=== PATIENT | female | born 1975 | race Two or more races ===

== ENCOUNTER 2017-04-09 12:52 | Emergency (ER) | payer BC ==
[~2017-04-09] VITALS: Ht 160 cm; Wt 72.5 kg
[~2017-04-09 12:52] MED LIST: ACYC-1 PO
[2017-04-09 12:53] VITALS: BP 162/103; PULSE 83; RESP 18; TEMP 98.5; O2SAT 99
[2017-04-09 14:10] LABS: AUTOMATED NEUTROPHIL # 3.8 TH/MM3 (1.8-7.7); BASOPHIL % 0.4 % (0.0-2.0); EOSINOPHIL # 0.1 TH/MM3 (0-0.4); EOSINOPHIL % 1.6 % (0.0-4.0); HEMATOCRIT 39.6 % (35.0-46.0); HEMO FLAGS DIFF FINAL; MEAN CORPUSCULAR HEMOGLOBIN 27.9 PG (27.0-34.0); MEAN CORPUSCULAR HGB CONC 33.6 % (32.0-36.0); MONO % 6.1 % (0.0-8.0); NEUT % 59.9 % (16.0-70.0); PLATELET COUNT 280 TH/MM3 (150-450); RED BLOOD COUNT 4.77 MIL/MM3 (4.00-5.30); RED CELL DISTRIBUTION WIDTH 15.3 % (11.6-17.2); WHITE BLOOD COUNT 6.3 TH/MM3 (4.0-11.0)
[2017-04-09 14:21] LABS: BICARBONATE 25.2 MEQ/L (21.0-32.0); POTASSIUM 3.7 MEQ/L (3.5-5.1)
[2017-04-09] MEDS ORDERED: AMIT25TA9 PO (14:24)
[2017-04-09 14:37] LABS: BACTERIA, URINE OCC /hpf; BLOOD, URINE MOD (NEG); COMMENT (UR) CULT NOT INDICATED; CULTURE IF INDICATED CULT NOT INDICATED; GLUCOSE,URINE NEG (NEG); KETONE, URINE NEG (NEG); MUCUS URINE FEW /lpf (OCC); NITRITE,URINE NEG (NEG); PH, URINE 5.5 (5.0-8.5); SQUAMOUS EPITHELIAL CELL URINE 5 /hpf (0-5); URINE COLOR YELLOW (YELLW/STRAW)
--- NOTE | 2017-04-09 15:24 | PD ---
HPI Chief Complaint: Flank/Kidney Pain Time Seen by Provider: 14:49 Travel History International Travel<30 days: No Contact w/Intl Traveler<30days: No Traveled to known affect area: No History of Present Illness HPI This is a 41-year-old female who presents to the emergency department with right sided abdominal pain, intermittent, moderate severity, present for 3 days with no associated nausea, vomiting, fevers or chills. She denies any dysuria or vaginal discharge. She denies any postprandial pain. She says 5 months ago she had a ventral hernia repaired and after that she was having some right upper quadrant pain and she had evaluation of her gallbladder which was all negative. She says this pain is different and it's more sharp and it radiates to her back. PFSH Past Medical History Migraines: Yes Tetanus Vaccination: Unknown Influenza Vaccination: No ?: Not : 4 Para: 4 Past Surgical History Abdominal Surgery: Yes (hernia repair) Section: Yes Social History Alcohol Use: No Tobacco Use: No Substance Use: No Allergies-Medications (Allergen,Severity, Reaction): Coded Allergies: Pork/Porcine Containing Products (Unverified Allergy, Unknown, 04/09/17) Reported Meds & Prescriptions Reported Meds & Active Scripts Active Ranitidine (Ranitidine HCl) 150 Mg Tab 150 Mg PO BID Reported Amitriptyline (Amitriptyline HCl) 25 Mg Tab 12.5 Mg PO HS Review of Systems Except as stated in HPI: all other systems reviewed are Neg Physical Exam Narrative GENERAL:Well appearing, no acute distress SKIN: Focused skin assessment warm and dry. HEAD: Atraumatic. Normocephalic. EYES: Pupils equal and round. No injection or drainage. ENT: Moist mucous membranes NECK: Trachea midline. CARDIOVASCULAR: Regular rate and rhythm. No murmur appreciated. RESPIRATORY: Clear to auscultation. Breath sounds equal bilaterally. GASTROINTESTINAL: Abdomen soft, tender to palpation in the right upper quadrant and epigastrium with no Cool sign MUSCULOSKELETAL: No obvious deformities. NEUROLOGICAL: Awake and alert. No obvious cranial nerve deficits. Moving all extremities. PSYCHIATRIC: Appropriate mood and affect; insight and judgment normal. Data Data Last Documented VS Vital Signs Date Time Temp Pulse Resp B/P (MAP) Pulse Ox O2 Delivery O2 Flow Rate FiO2 04/09/17 15:58 77 16 154/91 (112) 99 04/09/17 12:53 98.5 Room Air Orders Orders Complete Blood Count With Diff (04/09/17 13:02) Basic Metabolic Panel (Bmp) (04/09/17 13:02) Urinalysis - C+S If Indicated (04/09/17 13:02) Ed Urine Pregnancytest Poc (04/09/17 13:02) Ed Poc Ultrasound (04/09/17 ) Hepatic Functional Panel (04/09/17 15:24) Lipase (04/09/17 15:24) Ed Discharge Order (04/09/17 15:25) Labs Laboratory Tests Test 04/09/17 13:32 White Blood Count 6.3 TH/MM3 Red Blood Count 4.77 MIL/MM3 Hemoglobin 13.3 GM/DL Hematocrit 39.6 % Mean Corpuscular Volume 83.0 FL Mean Corpuscular Hemoglobin 27.9 PG Mean Corpuscular Hemoglobin Concent 33.6 % Red Cell Distribution Width 15.3 % Platelet Count 280 TH/MM3 Mean Platelet Volume 7.4 FL Neutrophils (%) (Auto) 59.9 % Lymphocytes (%) (Auto) 32.0 % Monocytes (%) (Auto) 6.1 % Eosinophils (%) (Auto) 1.6 % Basophils (%) (Auto) 0.4 % Neutrophils # (Auto) 3.8 TH/MM3 Lymphocytes # (Auto) 2.0 TH/MM3 Monocytes # (Auto) 0.4 TH/MM3 Eosinophils # (Auto) 0.1 TH/MM3 Basophils # (Auto) 0.0 TH/MM3 CBC Comment DIFF FINAL Differential Comment Urine Color YELLOW Urine Turbidity HAZY Urine pH 5.5 Urine Specific [place] 1.025 Urine Protein TRACE mg/dL Urine Glucose (UA) NEG mg/dL Urine Ketones NEG mg/dL Urine Occult Blood MOD Urine Nitrite NEG Urine Bilirubin NEG Urine Urobilinogen LESS THAN 2.0 MG/DL Urine Leukocyte Esterase NEG Urine RBC 1 /hpf Urine WBC 1 /hpf Urine Squamous Epithelial Cells 5 /hpf Urine Bacteria OCC /hpf Urine Mucus FEW /lpf Microscopic Urinalysis Comment CULT NOT INDICATED Blood Urea Nitrogen 11 MG/DL Creatinine 0.64 MG/DL Random Glucose 86 MG/DL Calcium Level 8.7 MG/DL Sodium Level 138 MEQ/L Potassium Level 3.7 MEQ/L Chloride Level 105 MEQ/L Carbon Dioxide Level 25.2 MEQ/L Anion Gap 8 MEQ/L Estimat Glomerular Filtration Rate 103 ML/MIN Total Bilirubin 0.4 MG/DL Direct Bilirubin 0.1 MG/DL Indirect Bilirubin 0.3 MG/DL Aspartate Amino Transf (AST/SGOT) 15 U/L Alanine Aminotransferase (ALT/SGPT) 32 U/L Alkaline Phosphatase 89 U/L Total Protein 7.5 GM/DL Albumin 3.9 GM/DL Lipase 108 U/L MDM Medical Decision Making Medical Screen Exam Complete: Yes Emergency Medical Condition: Yes Interpretation(s) Afebrile, no tachycardia, hypertensive No leukocytosis Electrolytes reassuring Biliary labs are normal Differential Diagnosis Cholelithiasis, cholecystitis, pancreatitis, gastritis, peptic ulcer disease, pulmonary embolism Narrative Course This is a 41-year-old female who presents to the emergency department with right upper quadrant abdominal discomfort. She's had no vomiting or fever. She appears well on exam. She is placed on a monitor and an IV was established. Labs are obtained which were all reassuring including normal biliary labs. I performed a [id number] ultrasound of the gallbladder and I didn't appreciate any gallbladder wall thickness, stones or Cool sign. I think she is safe for outpatient follow-up with her primary care physician. We agreed to defer CT imaging given her well appearance and the nature of her pain and I think she may benefit more from gastroenterology follow-up. Procedures Procedure Narrative [id number] ultrasound gallbladder: Gallbladder wall is 0.26 cm thick, no pericholecystic fluid or stones appreciated. No sonographic Cool sign. Unable to visualize the bile duct. Diagnosis Primary Impression: Abdominal pain Qualified Codes: R10.11 - Right upper quadrant pain Patient Instructions: General Instructions Additional Instructions: If you develop severe or worsening abdominal pain, fever>100.4, persistent vomiting or inability to eat or drink return to the emergency department immediately. Follow up with your primary care physician in 1-2 days for a check-up. Med/Other Pt SpecificInfo: Prescription(s) given Scripts Ranitidine (Ranitidine) 150 Mg Tab 150 MG PO BID for Heartburn Management, #60 TAB 0 Refills Prov: Lindsey Holbrook MD 04/09/17 Disposition: 01 DISCHARGE HOME Condition: Stable Lindsey Holbrook MD Apr 09, 2017 15:24
[2017-04-09] MEDS ORDERED: RANI150T PO (15:25)
[2017-04-09 15:58] VITALS: BP 154/91
[2017-04-09 16:08] LABS: INDIRECT BILIRUBIN 0.3 MG/DL (0.0-0.8); TOTAL BILIRUBIN ADULT 0.4 MG/DL (0.2-1.0)
== END 2017-04-09 15:59 | disposition home or self-care (01) ==
LOC: NEPD 12:52
DX: R10.11 Right upper quadrant pain (principal)
CPT/HCPCS: 80048; 80076; 81001; 83690; 84703; 85025; 99284